=== PATIENT | female | born 1985 | race Caucasian/White ===

== ENCOUNTER 2020-04-26 07:00 | Inpatient (IN) | payer OTHER ==
[~2020-04-26] VITALS: Ht 157.5 cm; Wt 63.5 kg
[2020-05-03] MEDS ORDERED: IRO PLEX (07:50)
== END 2020-05-05 13:15 | disposition home or self-care (01) | DRG 743 ==
LOC: OB/GYN 05-03 05:54 → O/R 05-03 05:54 → OB/GYN 05-03 07:00
PROVIDERS: ADMIT Obstetrics & Gynecology; ATTEND Obstetrics & Gynecology
PROC: 0UB10ZZ Excision of Left Ovary, Open Approach (ICD-10-PCS; 2020-05-03)
PROC: 0UB60ZZ Excision of Left Fallopian Tube, Open Approach (ICD-10-PCS; 2020-05-03)
PROC: 0UT90ZZ Resection of Uterus, Open Approach (ICD-10-PCS; principal; 2020-05-03 07:00)
DX: N80.0 Endometriosis of uterus (principal); N72 Inflammatory disease of cervix uteri; N83.8 Other noninflammatory disorders of ovary, fallopian tube and broad ligament; N70.11 Chronic salpingitis; R97.1 Elevated cancer antigen 125 [CA 125]; N32.89 Other specified disorders of bladder